=== PATIENT | female | born 1995 | race Caucasian/White ===

== ENCOUNTER 2017-09-07 14:52 | Emergency (ER) | payer OTHER ==
[2017-09-07 15:26] VITALS: BP 129/92
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
== END 2017-09-07 16:36 | disposition home or self-care (01) ==
LOC: ER 15:44
DX: T50.901A Poisoning by unspecified drugs, medicaments and biological substances, accidental (unintentional), initial encounter (principal)
CPT/HCPCS: 36415; 80305; 80357; 80375; 81001; 99283